=== PATIENT | male | born 1950 | race Caucasian/White ===

== ENCOUNTER → 2019-08-19 12:57 | Outpatient (CLI) | payer MEDICARE, BC, SELFPAY ==
[2019-08-19 13:37] LABS: Add Manual Diff / Slide Review NO; Basophils Absolute Auto 0 /uL (0-100); Basophils Percent Auto 0.6 % (0-2); Eosinophils Absolute Auto 100 /uL (0-450); Eosinophils Percent Auto 1.8 % (2-4); Hematocrit 42.4 % (41-53); Hemoglobin 14.7 g/dL (13.5-17.5); Lymphocytes Absolute Auto 1800 /uL (1100-4500); Mean Corpuscular HGB Conc 34.7 % (30-36); Mean Corpuscular Hemoglobin 31.7 PG (26-34); Mean Corpuscular Volume 91.2 fL (80-100); Monocytes Absolute Auto 600 /uL (0-900); Monocytes Percent Auto 11.7 % (3-14); Neutrophils Absolute Auto 2400 /uL (1500-7000); Neutrophils Percent Auto 48.9 % (50-75); Platelet Count 152 X10^3/uL (150-400); Red Blood Cell Count 4.65 X10^6/uL (4.5-5.9); White Blood Cell Count 4.9 X10^3/uL (4.5-11.0)
[2019-08-19 14:04] LABS: 585 Gram Check PASS; Postdiastolic BP 84; Postsystolic BP 129; Prediastolic 82; Presystolic 144; Pulse 67; Site of phlebotomy RAC; Swelling NO; Zero Check Sebra Scale PASS
[2019-08-19 14:05] LABS: Dizziness NO; Therapeutic Phleb Comment NO COMMENT
[2019-08-19 14:17] LABS: HEMOLYSIS < 15 (0-50); Iron 198 ug/dL (49-181)
[2019-08-19 14:30] LABS: Percent Iron Saturation 52 % (20-50); Total Iron Binding Capacity 383 ug/dL (261-462); Transferrin 313 mg/dL (206-381)
[2019-08-19 14:34] LABS: Ferritin 38.4 ng/mL (17.9-464)
== END ==
PROVIDERS: PCP Family Medicine; Visit Provider Internal Medicine Hematology & Oncology
DX: E83.119 Hemochromatosis, unspecified (principal)
CPT/HCPCS: 82728; 83540; 83550; 85025; 99195

== ENCOUNTER → 2020-04-20 10:24 | Outpatient (CLI) | payer MEDICARE, BC, SELFPAY ==
--- NOTE | 2020-04-20 10:25 | DI.US.S_ITS ---
PROCEDURE: US ABDOMEN LIMITED INDICATIONS: hemachromatosis, rising LFT, spenomegaly? TECHNIQUE: Real-time scanning was performed of the abdominal and retroperitoneal organs, with image documentation. COMPARISON: None. FINDINGS: Liver: Liver is normal in size and homogeneous in echotexture. Gallbladder: The liver measures 18.2 cm in length and demonstrates a normal echotexture. Spleen: The spleen measures 13 cm in length. IMPRESSION: Mild splenomegaly. Cholelithiasis. Dictated by: Ev Neumann M.D. on 04/20/2020 at 12:03 Approved by: Ev Neumann M.D. on 04/20/2020 at 12:05
== END ==
PROVIDERS: PCP Family Medicine; Referring Provider Family Medicine; Visit Provider Internal Medicine Hematology & Oncology
DX: E83.119 Hemochromatosis, unspecified (principal); K80.20 Calculus of gallbladder without cholecystitis without obstruction; R16.1 Splenomegaly, not elsewhere classified; R74.0 Nonspecific elevation of levels of transaminase and lactic acid dehydrogenase [LDH]; R79.89 Other specified abnormal findings of blood chemistry
CPT/HCPCS: 76705

== ENCOUNTER → 2020-05-11 10:05 | Outpatient (CLI) | payer MEDICARE, BC, SELFPAY ==
[2020-05-11 10:51] LABS: 585 Gram Check PASS; Dizziness NO; Postdiastolic BP 81; Postsystolic BP 131; Prediastolic 86; Presystolic 135; Pulse 64; Site of phlebotomy RAC; Swelling NO; Therapeutic Phleb Comment NO COMMENT; Zero Check Sebra Scale PASS
== END ==
PROVIDERS: PCP Family Medicine; Referring Provider Internal Medicine Hematology & Oncology; Visit Provider Internal Medicine Hematology & Oncology
DX: E83.119 Hemochromatosis, unspecified (principal)
CPT/HCPCS: 99195

== ENCOUNTER 2022-11-23 10:33 | Emergency (ER) | payer MEDICARE, SELFPAY ==
[2022-11-23] VITALS (11 sets, daily range): BP systolic 106–151; BP diastolic 61–84; PULSE 38–65; RESP 14–20; TEMP 35.9; O2SAT 94–99; BMI 28.1
--- NOTE | 2022-11-23 10:52 | ED_ITS ---
HPI - General Adult General Chief complaint: Abdominal Pain Stated complaint: Thinks Gallstones Time Seen by Provider: 11/23/22 10:36 Source: patient Mode of arrival: Ambulatory Limitations: no limitations History of Present Illness HPI narrative: Patient is a 72-year-old male who is here for evaluation of a 2nd day of right- sided flank pain. He states that he has had some nausea and vomiting and some diarrhea which does make his symptoms somewhat better. The symptoms started yesterday when he woke up but then went away as the day went on but now back again today. He thinks that potentially this his gallstones because several months ago he would a skiing accident where he broke some ribs. He was told th at he had gallstones at that time. He denies any fevers. This morning he comes to the emergency department for continued pain. No prior abdominal surgeries. Related Data Home Medications Medication Instructions Recorded Confirmed amlodipine 10 mg tablet 10 mg PO DAILY 08/16/19 10/28/22 meloxicam 15 mg tablet 15 mg PO DAILY 04/29/22 10/28/22 Previous Rx's Medication Instructions Recorded hydrocodone 5 mg-acetaminophen 325 1 tab PO Q4-6H PRN pain #7 tabs 11/23/22 mg tablet ondansetron 4 mg disintegrating 4 mg PO Q6H PRN nausea and 11/23/22 tablet vomiting #10 tabs Allergies Allergy/AdvReac Type Severity Reaction Status Date / Time bee pollen Allergy Intermediate Verified 11/23/22 10:53 latex AdvReac Verified 11/23/22 10:53 Review of Systems Review of Systems ROS Unobtainable: All systems reviewed & are unremarkable except as noted in HPI and below Patient History Medical History Hemochromatosis Hypertension Insomnia Nocturnal hypoxemia Obstructive sleep apnea of adult Snoring Surgical History (Updated 08/20/19 @ 00:06 by Karie Chang MD) History of hip replacement (~2015) History of hip replacement (~2006) History of laminectomy (~2004) Social History Smoking Status: Unknown if ever smoked Exam Initial Vital Signs Initial Vital Signs: Vital Signs Pulse Rate 44 L 11/23/22 10:44 Blood Pressure 118/61 11/23/22 10:44 Pulse Oximetry 98 11/23/22 10:44 Const General: cooperative, comfortable and No ill appearing HENMT Head: normal to inspection and normocephalic Resp Effort & Inspection: normal respiratory effort Auscultation: clear to auscultation bilaterally Cardio Rate: bradycardic Rhythm: regular rhythm GI Inspection: normal to inspection and non-distended Palpation: soft, No firm and No tender Back/Spine/Pelvis Back: CVA tenderness left Skin General: no rashes or lesions noted Neuro General: patient alert, patient awake and moves all extremities Extrem General: normal to inspection and capillary refill normal Course Orders Ordered: ED Orders 11/23/22 10:00 EKG-12 Lead Routine 11/23/22 10:50 Complete Blood Count AUTO DIFF Stat Comprehensive Metabolic Panel Stat Lipase Stat 11/23/22 10:55 CT abdomen pelvis w con Stat 11/23/22 12:39 US abdomen limited Stat Discontinued Medications Ketorolac Tromethamine (Ketorolac 30 Mg/Ml Vial) 30 mg IV NOW ONE Stop: 11/23/22 10:56 Last Admin: 11/23/22 11:03 Dose: 30 mg Documented By: MILAGRO Morphine Sulfate (Morphine 4 Mg/Ml Inj) 4 mg IV NOW ONE Stop: 11/23/22 12:41 Last Admin: 11/23/22 12:48 Dose: 4 mg Documented By: ZEKE Ondansetron HCl (Ondansetron 4 Mg/2 Ml Inj) 4 mg IV NOW ONE Stop: 11/23/22 10:56 Last Admin: 11/23/22 11:01 Dose: 4 mg Documented By: MILAGRO Ondansetron HCl (Ondansetron 4 Mg/2 Ml Inj) 4 mg IV NOW ONE Stop: 11/23/22 12:47 Last Admin: 11/23/22 12:48 Dose: 4 mg Documented By: ZEKE Vital Signs Vital signs: Vital Signs - 8 hr 11/23/22 10:45 11/23/22 11:07 11/23/22 10:44 Temperature 96.7 F L Pulse Rate 45 L 38 L Respiratory Rate 15 20 Blood Pressure 118/61 151/84 H 118/61 Pulse Oximetry 95 99 Oxygen Delivery Method Room Air Room Air 11/23/22 10:44 11/23/22 11:00 11/23/22 11:08 Temperature Pulse Rate 44 L 48 L 45 L Respiratory Rate 16 19 Blood Pressure Pulse Oximetry 98 98 99 Oxygen Delivery Method Room Air 11/23/22 11:08 11/23/22 11:30 11/23/22 11:31 Temperature Pulse Rate 44 L Respiratory Rate 14 Blood Pressure 151/84 H 119/62 Pulse Oximetry 99 Oxygen Delivery Method 11/23/22 11:31 11/23/22 12:30 11/23/22 13:00 Temperature Pulse Rate 44 L 42 L 54 L Respiratory Rate 17 18 20 Blood Pressure Pulse Oximetry 99 98 Oxygen Delivery Method 11/23/22 13:30 11/23/22 14:48 Temperature Pulse Rate 53 L 65 Respiratory Rate Blood Pressure 106/63 Pulse Oximetry 94 96 Oxygen Delivery Method Room Air Medical Decision Making Lab Data Lab results reviewed: Yes I reviewed the patient's lab results. 11/23/22 10:50 11/23/22 10:50 Labs: Lab Results 11/23/22 11/23/22 Range/Units 10:50 10:50 WBC 8.3 (4.5-11.0) X10^3/uL RBC 4.60 (4.5-5.9) X10^6/uL Hgb 14.7 (13.5-17.5) g/dL Hct 42.6 (41-53) % MCV 92.7 (80-100) fL MCH 31.9 (26-34) PG MCHC 34.4 (30-36) % RDW 13.7 (11.6-14.8) % Plt Count 164 (150-400) X10^3/uL Neut % (Auto) 75.5 H (50-75) % Lymph % (Auto) 17.9 L (25-40) % [place] % (Auto) 5.8 (3-14) % Eos % (Auto) 0.3 L (2-4) % Baso % (Auto) 0.5 (0-2) % Neut # (Auto) 6200 (1915-5361) /uL Lymph # (Auto) 1500 (4663-3700) /uL [place] # (Auto) 500 (0-900) /uL Eos # (Auto) 0 (0-450) /uL Baso # (Auto) 0 (0-100) /uL Sodium 137 (137-145) mmol/L Potassium 4.0 (3.4-5.1) mmol/L Chloride 104 (98-107) mmol/L Carbon Dioxide 25 (22-32) mmol/L BUN 25 H (9-20) mg/dL Creatinine 0.96 (0.66-1.25) mg/dL Estimated GFR > 60 (>60) mL/min BUN/Creatinine Ratio 26.0 H (6-22) Glucose 117 H (80-110) mg/dL Calcium 9.1 (8.4-10.2) mg/dL Total Bilirubin 0.7 (0.2-1.3) mg/dL AST 53 (17-59) IU/L ALT 69 H (<50) IU/L Alkaline Phosphatase 78 (38-126) U/L Total Protein 7.5 (6.3-8.2) g/dL Albumin 4.6 (3.5-5.0) g/dL Globulin 2.9 (1.7-4.1) g/dL Albumin/Globulin Ratio 1.6 (1.0-2.8) Lipase 104 (23-300) U/L Imaging Data CT scan - abdomen/pelvis: Radiologist's Impression: PROCEDURE:? CT ABDOMEN PELVIS W CON ? INDICATIONS:? Left flank pain ? TECHNIQUE:? After the administration of IV contrast, axial sections were acquired from the lung bases to the pubic symphysis.? Coronal and sagittal reformats were performed.? For radiation dose reduction, the following was used:? automated exposure control, adjustment of mA and/or kV according to patient size. ? COMPARISON:? US, US ABDOMEN LIMITED, 04/20/2020, 10:39. ? FINDINGS:? Image quality:? Portions of the lower pelvis are suboptimally evaluated secondary to metallic streak artifact from hip arthroplasty. ? Lung bases:? Unremarkable.? ? Heart:? No significant findings. ? ? ABDOMEN: Liver:? Liver is enlarged measuring 20.1 cm.? Diffuse steatosis is present. Gallbladder:? Calcifications noted the dependent gallbladder without wall thick ening.? ? Biliary ducts:? Unremarkable.? ? Pancreas:? Unremarkable.? ? Spleen:? Unremarkable.? ? Adrenal Glands:? Unremarkable.? ? Kidneys and Ureters:? Simple left renal cyst is present.? There is mild right hydronephrosis and proximal hydroureter.? Right perinephric stranding.? Proximal right ureteral calculus is present. ? Stomach and Bowel:? Stomach, small bowel loops, and colon are nonobstructive.? Prominent colonic diverticula are present with mild sigmoid thickening.? However, no associated inflammatory change and no priors are available for comparison. Peritoneum:? No abnormal intraperitoneal fluid.? No free air.? ? Abdominal Nodes:? No retroperitoneal or mesenteric adenopathy by size criteria.? Vessels:? Aorta and inferior vena cava are normal in size.? ? PELVIS: Pelvic Organs:? Unremarkable.? ? Bladder:? Unremarkable.? ? Pelvic Nodes: No enlarged lymph nodes.? Miscellaneous: No inguinal hernias are seen. ? ? ? Bones:? Unremarkable.? IMPRESSION:? ? Right hydronephrosis and hydroureter with punctate ureteral stone. ? Colonic diverticula with thickening of the sigmoid colon.? There is no associated inflammatory change.? While this could represent early colitis secondary to diverticulitis, chronic thickening secondary to diverticula cannot be excluded as no priors are available for comparison. US - abdomen: Radiologist's Impression: PROCEDURE: US ABDOMEN LIMITED ? INDICATIONS:? RIGHT UPPER QUADRANT/FLANK PAIN ? TECHNIQUE:? Real-time focused scanning was performed of the abdomen, with image documen tation.? ? COMPARISON:? [facility], CT, CT ABDOMEN PELVIS W CON, 11/23/2022, 11:49.? [facility], US, US ABDOMEN LIMITED, 04/20/2020, 10:39. ? FINDINGS:? The liver demonstrates mildly enlarged size. The liver demonstrates generalized mildly increased echogenicity. This decreases ultrasound sensitivity for detection of hepatic masses.? ? A single mobile gallstone is seen that measures up to 9 mm.? The gallbladder wall is not thickened, measuring 3 mm or less.? No specific pericholecystic fluid is seen.? The sonographic Murrell sign is negative. ? There is no biliary dilatation, the common bile duct measures 4 mm.? ? No significant pancreatic abnormality is seen on these images.? ? Right kidney hydronephrosis is seen.? The right proximal ureter is dilated to 7 mm.? The stone that can be seen within the right proximal ureter on the recent CT study is not seen on this ultrasound, secondary to overlying bowel gas.? IMPRESSION:? Right kidney hydronephrosis and hydroureter.? (capitalize proximal ureteral stone that can be seen by CT is not seen on this ultrasound study.) ? A single mobile gallstone is seen, yet without additional sonographic signs of cholecystitis.? Negative for biliary dilatation.? Please correlate with physical examination findings, patient presentation, and laboratory values.? ? ? The liver demonstrates mildly increased echogenicity.? This finding is nonspecific, yet it is most commonly attributed to fatty infiltration.? ECG Data Attestation: I personally reviewed and interpreted this ECG as follows: Interpretation: Sinus bradycardia Ventricular rate 44 Left axis deviation Nonspecific ST T wave changes MDM Narrative Medical decision making narrative: Patient does have right upper quadrant/right back pain although his LFTs are unremarkable. He does have gallstones but no signs of acute cholecystitis. His physical exam is not consistent with diverticulitis. The CT scan does show a proximal right ureteral punctate stone with hydro which I suspect is the cause of his symptoms today. He is afebrile. Tolerating oral intake. Had an extensive discussion with him regarding this. Will send home with symptom treatment. We did discuss strict return precautions. He expressed understanding and agreement with plan. Discharge Plan Departure Patient Disposition: Home Clinical Impression: Right ureteral stone Instructions: DI for Kidney Stones Activity Restrictions/Additional Instructions: Recommend that you continue to take all of your medications as directed. Use the pain medicine and nausea medicine like we discussed. I recommend you contact your primary doctor for a follow-up. Return to the emergency department for new or worsening symptoms. Prescriptions: New ondansetron 4 mg tablet,disintegrating 4 mg PO Q6H PRN (Reason: nausea and vomiting) Qty: 10 0RF hydrocodone-acetaminophen 5-325 mg tablet 1 tab PO Q4-6H PRN (Reason: pain) Qty: 7 0RF No Action amlodipine 10 mg Tablet 10 mg PO DAILY meloxicam 15 mg Tablet 15 mg PO DAILY Referrals: Arie Mcfarland MD [Primary Care Provider] - Stand Alone Forms: Patient Portal/API
--- NOTE | 2022-11-23 10:55 | DI.CT.S_ITS ---
PROCEDURE: CT ABDOMEN PELVIS W CON INDICATIONS: Left flank pain TECHNIQUE: After the administration of IV contrast, axial sections were acquired from the lung bases to the pubic symphysis. Coronal and sagittal reformats were performed. For radiation dose reduction, the following was used: automated exposure control, adjustment of mA and/or kV according to patient size. COMPARISON: US, US ABDOMEN LIMITED, 04/20/2020, 10:39. FINDINGS: Image quality: Portions of the lower pelvis are suboptimally evaluated secondary to metallic streak artifact from hip arthroplasty. Lung bases: Unremarkable. Heart: No significant findings. ABDOMEN: Liver: Liver is enlarged measuring 20.1 cm. Diffuse steatosis is present. Gallbladder: Calcifications noted the dependent gallbladder without wall thickening. Biliary ducts: Unremarkable. Pancreas: Unremarkable. Spleen: Unremarkable. Adrenal Glands: Unremarkable. Kidneys and Ureters: Simple left renal cyst is present. There is mild right hydronephrosis and proximal hydroureter. Right perinephric stranding. Proximal right ureteral calculus is present. Stomach and Bowel: Stomach, small bowel loops, and colon are nonobstructive. Prominent colonic diverticula are present with mild sigmoid thickening. However, no associated inflammatory change and no priors are available for comparison. Peritoneum: No abnormal intraperitoneal fluid. No free air. Abdominal Nodes: No retroperitoneal or mesenteric adenopathy by size criteria. Vessels: Aorta and inferior vena cava are normal in size. PELVIS: Pelvic Organs: Unremarkable. Bladder: Unremarkable. Pelvic Nodes: No enlarged lymph nodes. Miscellaneous: No inguinal hernias are seen. Bones: Unremarkable. IMPRESSION: Right hydronephrosis and hydroureter with punctate ureteral stone. Colonic diverticula with thickening of the sigmoid colon. There is no associated inflammatory change. While this could represent early colitis secondary to diverticulitis, chronic thickening secondary to diverticula cannot be excluded as no priors are available for comparison. Dictated by: Christa Medina M.D. on 11/23/2022 at 12:32 Approved by: Christa Medina M.D. on 11/23/2022 at 12:34
[2022-11-23 10:59] LABS: Add Manual Diff / Slide Review NO; Basophils Absolute Auto 0 /uL (0-100); Basophils Percent Auto 0.5 % (0-2); Eosinophils Absolute Auto 0 /uL (0-450); Eosinophils Percent Auto 0.3 % (2-4); Hematocrit 42.6 % (41-53); Hemoglobin 14.7 g/dL (13.5-17.5); Lymphocytes Absolute Auto 1500 /uL (1100-4500); Lymphocytes Percent Auto 17.9 % (25-40); Mean Corpuscular HGB Conc 34.4 % (30-36); Mean Corpuscular Hemoglobin 31.9 PG (26-34); Mean Corpuscular Volume 92.7 fL (80-100); Monocytes Absolute Auto 500 /uL (0-900); Monocytes Percent Auto 5.8 % (3-14); Neutrophils Absolute Auto 6200 /uL (1500-7000); Neutrophils Percent Auto 75.5 % (50-75); Platelet Count 164 X10^3/uL (150-400); Red Cell Distribution Width 13.7 % (11.6-14.8); White Blood Cell Count 8.3 X10^3/uL (4.5-11.0)
[2022-11-23] MEDS: ONDANSETRON 4 MG/2 ML INJ IV ×2 (11:01→12:48)
[2022-11-23] MEDS: KETOROLAC 30 MG/ML VIAL IV (11:03)
[2022-11-23 11:11] LABS: Alanine Aminotransferase 69 IU/L (<50); Albumin 4.6 g/dL (3.5-5.0); Albumin Globulin Ratio 1.6 (1.0-2.8); Alkaline Phosphatase 78 U/L (38-126); Aspartate Aminotransferase 53 IU/L (17-59); Bilirubin Total 0.7 mg/dL (0.2-1.3); Blood Urea Nitrogen 25 mg/dL (9-20); Calcium 9.1 mg/dL (8.4-10.2); Carbon Dioxide 25 mmol/L (22-32); Chloride 104 mmol/L (98-107); Estimated Glomerular Filt Rate > 60 mL/min (>60); Globulin 2.9 g/dL (1.7-4.1); Glucose 117 mg/dL (80-110); HEMOLYSIS < 15 (0-50); Lipase 104 U/L (23-300); Sodium 137 mmol/L (137-145); Total Protein 7.5 g/dL (6.3-8.2)
--- NOTE | 2022-11-23 12:39 | DI.US.S_ITS ---
PROCEDURE: US ABDOMEN LIMITED INDICATIONS: RIGHT UPPER QUADRANT/FLANK PAIN TECHNIQUE: Real-time focused scanning was performed of the abdomen, with image documentation. COMPARISON: [facility], CT, CT ABDOMEN PELVIS W CON, 11/23/2022, 11:49. [facility], US, US ABDOMEN LIMITED, 04/20/2020, 10:39. FINDINGS: The liver demonstrates mildly enlarged size. The liver demonstrates generalized mildly increased echogenicity. This decreases ultrasound sensitivity for detection of hepatic masses. A single mobile gallstone is seen that measures up to 9 mm. The gallbladder wall is not thickened, measuring 3 mm or less. No specific pericholecystic fluid is seen. The sonographic Murrell sign is negative. There is no biliary dilatation, the common bile duct measures 4 mm. No significant pancreatic abnormality is seen on these images. Right kidney hydronephrosis is seen. The right proximal ureter is dilated to 7 mm. The stone that can be seen within the right proximal ureter on the recent CT study is not seen on this ultrasound, secondary to overlying bowel gas. IMPRESSION: Right kidney hydronephrosis and hydroureter. (capitalize proximal ureteral stone that can be seen by CT is not seen on this ultrasound study.) A single mobile gallstone is seen, yet without additional sonographic signs of cholecystitis. Negative for biliary dilatation. Please correlate with physical examination findings, patient presentation, and laboratory values. The liver demonstrates mildly increased echogenicity. This finding is nonspecific, yet it is most commonly attributed to fatty infiltration. Dictated by: Rickey Castaneda M.D. on 11/23/2022 at 13:22 Approved by: Rickey Castaneda M.D. on 11/23/2022 at 13:24
[2022-11-23] MEDS: MORPHINE 4 MG/ML INJ IV (12:48)
== END 2022-11-23 14:57 | disposition home or self-care (01) ==
PROVIDERS: Emergency Provider Emergency Medicine; PCP Family Medicine
DX: N20.1 Calculus of ureter (principal); R10.9 Unspecified abdominal pain; R11.2 Nausea with vomiting, unspecified
CPT/HCPCS: 36415; 74177; 76705; 80053; 83690; 85025; 93005; 93010; 96374; 96375; 96376; 99284; J1885; J2270; J2405; Q9967

== ENCOUNTER → 2023-07-10 10:05 | Outpatient (ROUT) | payer MEDICARE, SELFPAY ==
[2023-07-10 10:50] LABS: Influenza A - CEPHEID Flu A POSITIVE (NEGATIVE); Influenza B - CEPHEID Flu B NEGATIVE (NEGATIVE)
[2023-07-10 11:01] LABS: COVID-19 CEPHEID 4-PLEX PCR Negative (Negative)
== END ==
PROVIDERS: PCP Family Medicine; Visit Provider Family Medicine
DX: R05.1 Acute cough (principal)
CPT/HCPCS: 0240U

== ENCOUNTER → 2023-11-19 12:10 | Outpatient (CLI) | payer OTHER, SELFPAY ==
--- NOTE | 2023-11-19 12:17 | DI.RAD.S_ITS ---
PROCEDURE: XR LUMBAR SPINE 2-3V INDICATIONS: BACK PAIN TECHNIQUE: 3 views of the lumbar spine were acquired. COMPARISON: [facility], CT, CT ABDOMEN PELVIS W CON, 11/23/2022, 11:49. [facility], CR, L-SPINE MINIMUM 4 VIEWS, 07/13/2015, 13:11. FINDINGS: Bones: 5 [id number] vertebrae are present. Retrolisthesis of L1 on L2 measuring 0.5 cm. Retrolisthesis of L2 on L3 measuring 0.6 cm. Trace anterolisthesis of L4 on L5. Loss of lumbar spine lordosis. Lower lumbar spine facet joint hypertrophy. Multilevel DDD. No vertebral body compression fractures. No suspicious bony lesions. Bilateral hip arthroplasties. Soft tissues: Overlying bowel gas pattern is normal. No suspicious soft tissue calcifications. IMPRESSION: No compression fracture. Moderate degenerative changes and DDD. Dictated by: Ranjan Wilson M.D. on 11/19/2023 at 22:23 Approved by: Ranjan Wilson M.D. on 11/19/2023 at 22:25
== END ==
LOC: RAD 12:16
PROVIDERS: PCP Family Medicine; Referring Provider Family Medicine; Visit Provider Family Medicine
DX: M51.36 Other intervertebral disc degeneration, lumbar region (principal); M47.816 Spondylosis without myelopathy or radiculopathy, lumbar region; M54.9 Dorsalgia, unspecified; Z96.643 Presence of artificial hip joint, bilateral
CPT/HCPCS: 72100

== ENCOUNTER → 2023-11-25 16:45 | Outpatient (CLI) | payer OTHER, SELFPAY ==
--- NOTE | 2023-11-25 16:46 | DI.MRI.S_ITS ---
PROCEDURE: MR LUMBAR SPINE WO CON INDICATIONS: Back pain with left sided radiculopathy TECHNIQUE: Noncontrast sagittal T1 spin echo and T2 fast echo, sagittal STIR, and T2 fast spin echo through the lumbar spine. In cases with scoliosis, additional coronal T2 fast spin echo may be performed. COMPARISON: [facility], MR, L-SPINE WITHOUT CONTRAST, 08/30/2016, 13:00. FINDINGS: Image quality: Excellent. Alignment and Curvature: There is normal bony alignment. Bone Marrow: Marrow is of normal overall signal. No acute vertebral body compression fractures. Prominent Schmorl's node in the superior endplate of L2. Spinal Cord: Conus medullaris terminates at the L1-2 level. Visualized cord demonstrates normal signal and size. Paraspinous Soft Tissues: No paravertebral masses. T12-L1: Moderate disc height loss. L1-L2: Broad-based disc bulge, ligamentum flavum hypertrophy. Moderate bilateral neural foraminal narrowing. Mild spinal canal narrowing. L2-L3: Broad-based disc bulge, facet hypertrophy, ligamentum flavum hypertrophy. Severe spinal canal narrowing and moderate to severe bilateral neural foraminal narrowing. L3-L4: Broad-based disc bulge, facet hypertrophy, facet effusions, ligamentum flavum hypertrophy causing severe spinal canal narrowing and severe bilateral neural foraminal narrowing. L4-L5: Broad-based disc bulge, severe facet arthrosis and hypertrophy causing moderate to severe spinal canal narrowing, moderate to severe left and moderate right neural foraminal narrowing. L5-S1: Broad-based disc bulge, facet hypertrophy. Moderate left and [id number] right neural foraminal narrowing. IMPRESSION: Progressive degenerative disc disease and facet arthrosis. Of note: Up to severe spinal canal narrowing at L2-3, L3-4. Up to severe neural foraminal narrowing at L3-4. Dictated by: Mikie Sandoval M.D. on 11/26/2023 at 16:36 Approved by: Mikie Sandoval M.D. on 11/26/2023 at 16:39
== END ==
PROVIDERS: PCP Family Medicine; Referring Provider Family Medicine; Visit Provider Family Medicine
DX: M51.16 Intervertebral disc disorders with radiculopathy, lumbar region (principal); M47.26 Other spondylosis with radiculopathy, lumbar region; M48.061 Spinal stenosis, lumbar region without neurogenic claudication; M51.17 Intervertebral disc disorders with radiculopathy, lumbosacral region; M47.27 Other spondylosis with radiculopathy, lumbosacral region; M48.07 Spinal stenosis, lumbosacral region; M48.8X6 Other specified spondylopathies, lumbar region
CPT/HCPCS: 72148